=== PATIENT | female | born 1990 | race Caucasian/White ===

== ENCOUNTER 2021-02-22 21:57 | Emergency (ER) | payer SELFPAY ==
[~2021-02-22] VITALS: Ht 167.6 cm; Wt 70.0 kg
[2021-02-22] MEDS ORDERED: OLANZAPINE 10 MG/VIAL IM ONE (23:30)
[2021-02-22] MEDS ORDERED: SODIUM CHLORIDE 0.9% 1,000 ML IV ONE (23:30)
[2021-02-23 00:47] LABS: HEMATOCRIT. 34.8 % (36.0-48.0); HEMOGLOBIN. 11.8 g/dL (12.0-16.0); MEAN CORPUSCULAR HEMOGLOBIN 29.3 pg (28.0-32.0); MEAN CORPUSCULAR VOLUME 86.1 fL (81.0-99.0); MEAN PLATELET VOLUME 7.7 fl (7.4-10.4); PLATELET 269 x1000/uL (130-400); RED BLOOD CELL COUNT 4.04 mill/uL (4.2-5.4); RED CELL DISTRIBUTION WIDTH 14.4 % (11.6-14.6)
[2021-02-23 00:58] LABS: HCG SCREEN NEGATIVE
[2021-02-23 01:00] VITALS: BP 120/66
[2021-02-23 01:00] LABS: CHLORIDE 106 mEq/L (98-107)
[2021-02-23 01:06] LABS: ETHANOL BLOOD < 10 mg/dL
[2021-02-23 04:49] LABS: PLATELET ESTIMATE NORMAL
== END 2021-02-23 02:13 | disposition home or self-care (01) ==
LOC: ER 21:57
DX: T43.621A Poisoning by amphetamines, accidental (unintentional), initial encounter (principal); Y92.89 Other specified places as the place of occurrence of the external cause; R45.1 Restlessness and agitation
CPT/HCPCS: 36415; 80053; 80307; 80320; 80329; 84703; 85025; 93005; 96360; 96372; 99284; J3490; J7030; G0480